=== PATIENT | female | born 2000 | race Caucasian/White ===

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

== ENCOUNTER 2022-03-11 11:09 | Emergency (ER) | payer SELFPAY | END 2022-03-11 12:26 | disposition home or self-care (01) | LOC: CSHERS 11:09 | DX: R06.02 Shortness of breath (principal); Z87.891 Personal history of nicotine dependence | CPT/HCPCS: 99284 ==

== ENCOUNTER 2023-01-27 12:02 | Emergency (ER) | payer SELFPAY ==
[2023-01-27] MEDS ORDERED: Dexamethasone 4 mg/ml Vial ONE (13:35)
[2023-01-27] MEDS ORDERED: Ketorolac Tromethamine 30 MG/ML VIAL ONE ×2 (13:36→13:42)
[2023-01-27] MEDS ORDERED: Ipratropium/Albuterol 3 ML NEB ONE (14:06)
[2023-01-27] MEDS ORDERED: Fluticasone Propionate Nasal Spray 16 gm Bottle NASAL SCH (15:45)
== END 2023-01-27 15:59 | disposition home or self-care (01) ==
LOC: CSHERS 12:02
DX: J45.901 Unspecified asthma with (acute) exacerbation (principal); J30.9 Allergic rhinitis, unspecified
CPT/HCPCS: 71045; 94640; 96372; J1100; J1885; J7620